=== PATIENT | female | born 1960 | race Caucasian/White ===

== ENCOUNTER 2017-11-25 07:52 | Emergency (ER) | payer SELFPAY ==
[~2017-11-25] VITALS: Ht 165.1 cm; Wt 86.0 kg
[2017-11-25] VITALS (7 sets, daily range): BP systolic 112–150; BP diastolic 64–84; PULSE 74–91; RESP 16–20; TEMP 98.1; O2SAT 95–99
[2017-11-25] MEDS ORDERED: LISI10TA3 PO (08:15)
[2017-11-25] MEDS ORDERED: HYDR50TA94 PO (08:15)
[2017-11-25] MEDS ORDERED: GABA300C5 PO (08:15)
[2017-11-25] MEDS ORDERED: DILA100C PO (08:15)
[2017-11-25] MEDS ORDERED: PRAZ2CAP PO (08:15)
[2017-11-25] MEDS ORDERED: BUSP30TA PO (08:15)
[2017-11-25] MEDS ORDERED: HYDR25TA5 PO (08:15)
[2017-11-25] MEDS ORDERED: PROZ20CA11 PO (08:15)
[2017-11-25] MEDS ORDERED: SODIUM CHLOR 0.9% 1000 ML INJ 1,000 ML IV SCH (08:33)
[2017-11-25] MEDS ORDERED: FAMOTIDINE 20 MG/2 ML VIAL IV PUSH ONE (08:45)
[2017-11-25] MEDS ORDERED: ONDANSETRON HCL 4 MG/2 ML VIAL IV PUSH ONE (08:45)
[2017-11-25] MEDS ORDERED: LORazepam 2 MG/ML VIAL ONE (09:01)
[2017-11-25] MEDS: SODIUM CHLORIDE 0.9% FLUSH 10 ML FLUSH IV FLUSH PRN ×3 (09:06→11:54)
[2017-11-25 09:09] LABS: AUTOMATED NEUTROPHIL # 4.7 TH/MM3 (1.8-7.7); BASOPHIL % 0.3 % (0.0-2.0); EOSINOPHIL % 0.5 % (0.0-4.0); HEMATOCRIT 33.1 % (35.0-46.0); HEMOGLOBIN 11.7 GM/DL (11.6-15.3); LYMPH % 14.8 % (9.0-44.0); LYMPHOCYTE # 0.9 TH/MM3 (1.0-4.8); MEAN CELL VOLUME 85.1 FL (80.0-100.0); MEAN CORPUSCULAR HEMOGLOBIN 30.1 PG (27.0-34.0); MEAN CORPUSCULAR HGB CONC 35.3 % (32.0-36.0); MEAN PLATELET VOLUME 7.6 FL (7.0-11.0); MONO % 4.9 % (0.0-8.0); MONOCYTE # 0.3 TH/MM3 (0-0.9); NEUT % 79.5 % (16.0-70.0); PLATELET COUNT 246 TH/MM3 (150-450); RED BLOOD COUNT 3.89 MIL/MM3 (4.00-5.30); RED CELL DISTRIBUTION WIDTH 11.7 % (11.6-17.2); WHITE BLOOD COUNT 5.9 TH/MM3 (4.0-11.0)
[2017-11-25] MEDS ORDERED: LORazepam 2 MG/ML VIAL IV PUSH ONE (09:15)
[2017-11-25 09:18] LABS: PROTHROMBIN TIME - PATIENT 10.5 SEC (9.8-11.6)
[2017-11-25 10:18] LABS: ALBUMIN 3.7 GM/DL (3.4-5.0); ALKALINE PHOSPHATASE 262 U/L (45-117); ALT (GPT) 55 U/L (10-53); AST (GOT) 36 U/L (15-37); BICARBONATE 23.5 MEQ/L (21.0-32.0); BLOOD UREA NITROGEN 7 MG/DL (7-18); CHLORIDE 90 MEQ/L (98-107); CREATININE 0.79 MG/DL (0.50-1.00); GLOMERULAR FILTRATION RATE 75 ML/MIN (>89); GLUCOSE,RANDOM 109 MG/DL (74-106); PHENYTOIN (DILANTIN) 3.6 MCG/ML (10.0-20.0); TOTAL BILIRUBIN ADULT 0.4 MG/DL (0.2-1.0); TOTAL PROTEIN 7.4 GM/DL (6.4-8.2)
[2017-11-25 10:19] LABS: SODIUM (NA) 124 MEQ/L (136-145)
[2017-11-25] MEDS ORDERED: PHENYTOIN INJ 1,000 MG in SODIUM CHLORIDE 0.9% INJ 100 ML IV ONE (10:45)
[2017-11-25] MEDS ORDERED: MIDAZOLAM HCL 2 MG/2 ML VIAL IV PUSH ONE (10:45)
[2017-11-25] MEDS ORDERED: CYCLOBENZAPRINE HCL 10 MG TAB PO ONE (11:30)
[2017-11-25] MEDS ORDERED: KETOROLAC TROMETHAMINE 30 MG/ML (IVP) VIAL IV PUSH ONE (11:30)
[2017-11-25] MEDS ORDERED: PROCHLORPERAZINE INJ 10 MG/2 ML VIAL IV PUSH ONE (12:15)
[2017-11-25] MEDS ORDERED: diphenhydrAMINE HCL 50 MG/ML VIAL IV PUSH ONE (12:15)
[2017-11-25 13:14] LABS: BILIRUBIN, URINE NEG (NEG); BLOOD, URINE SMALL (NEG); GLUCOSE,URINE NEG (NEG); KETONE, URINE NEG (NEG); NITRITE,URINE NEG (NEG); PH, URINE 5.5 (5.0-8.5); URINE COLOR YELLOW (YELLW/STRAW); URINE LEUKOCYTE ESTERASE NEG (NEG)
[2017-11-25 13:21] LABS: SQUAMOUS EPITHELIAL CELL URINE 0-5 /hpf (0-5); WBC, URINE 0-2 /hpf (0-5)
--- NOTE | 2017-11-25 13:40 | PD ---
HPI Chief Complaint: GI Complaint Time Seen by Provider: 08:06 Travel History International Travel<30 days: No Contact w/Intl Traveler<30days: No Traveled to known affect area: No History of Present Illness HPI Patient is a 57-year-old female who comes in complaining of nausea, vomiting, diarrhea. She has a history of seizure disorder, for which she takes Dilantin. She also reports taking BuSpar for psychiatric issues. She denies any abdominal pain. She says this is been going on for the past 3 days. She denies fever or chills. She denies any blood in her stool or her vomit. She says that she has not taken anything for her symptoms. She is unable to keep anything down, and has vomited up her seizure medications. Severity is mild to moderate. PFSH Past Medical History Arthritis: Yes Anxiety: Yes Depression: Yes Hypertension: Yes Seizures: Yes ?: Not Menopausal: Yes Past Surgical History Surgical History: No Previous Surgery Section: Yes Social History Alcohol Use: No Tobacco Use: No Substance Use: Yes ([place]) Allergies-Medications (Allergen,Severity, Reaction): Coded Allergies: acetaminophen (Verified Allergy, Unknown, 11/25/17) propoxyphene (Verified Allergy, Unknown, 11/25/17) Reported Meds & Prescriptions Reported Meds & Active Scripts Active Zofran Odt (Ondansetron Odt) 4 Mg Tab 4 Mg SL Q6HR PRN Reported Prozac (Fluoxetine HCl) 20 Mg Cap 60 Mg PO DAILY@1600 Hydroxyzine HCl 50 Mg Tab 200 Mg PO DAILY@1600 Buspirone (Buspirone HCl) 30 Mg Tab 60 Mg PO DAILY@1600 Prazosin (Prazosin HCl) 2 Mg Cap 4 Mg PO DAILY@1600 Gabapentin 300 Mg Cap 300 Mg PO TID Dilantin (Phenytoin Extended) 100 Mg Cap 300 Mg PO DAILY Hydrochlorothiazide 25 Mg Tab 25 Mg PO DAILY Lisinopril 10 Mg Tab 10 Mg PO DAILY Review of Systems Except as stated in HPI: all other systems reviewed are Neg General / Constitutional: No: Fever, Chills HENT: No: Headaches, Lightheadedness Cardiovascular: No: Chest Pain or Discomfort Respiratory: No: Shortness of Breath Gastrointestinal: Positive: Nausea, Vomiting, Diarrhea, No: Abdominal Pain Genitourinary: No: Dysuria Skin: No Rash, No Change in Pigmentation Neurologic: No: Weakness, Dizziness Physical Exam Narrative GENERAL: Awake and alert, in no acute distress. SKIN: Focused skin assessment warm/dry. No wounds or signs of infection. HEAD: Atraumatic. Normocephalic. EYES: Pupils equal and round. No scleral icterus. ENT: No nasal bleeding or discharge. Mucous membranes pink and moist. NECK: Trachea midline. No JVD. CARDIOVASCULAR: Regular rate and rhythm. No murmur appreciated. RESPIRATORY: No accessory muscle use. Clear to auscultation. Breath sounds equal bilaterally. GASTROINTESTINAL: Abdomen soft, non-tender, nondistended. MUSCULOSKELETAL: No obvious deformities. No clubbing. No cyanosis. No edema. NEUROLOGICAL: Awake and alert. No obvious cranial nerve deficits. Motor grossly within normal limits. Normal speech. PSYCHIATRIC: Appropriate mood and affect; insight and judgment normal. Data Data Last Documented VS Vital Signs Date Time Temp Pulse Resp B/P (MAP) Pulse Ox O2 Delivery O2 Flow Rate FiO2 11/25/17 12:31 83 20 131/84 (100) 99 Nasal Cannula 2.00 11/25/17 07:56 98.1 Orders Orders Complete Blood Count With Diff (11/25/17 08:33) Comprehensive Metabolic Panel (11/25/17 08:33) Lipase (11/25/17 08:33) Prothrombin Time / Inr (Pt) (11/25/17 08:33) Act Partial Throm Time (Ptt) (11/25/17 08:33) Urinalysis - C+S If Indicated (11/25/17 08:33) Iv Access Insert/Monitor (11/25/17 08:33) Ecg Monitoring (11/25/17 08:33) Oximetry (11/25/17 08:33) Sodium Chlor 0.9% 1000 Ml Inj (Ns 1000 M (11/25/17 08:33) Sodium Chloride 0.9% Flush (Ns Flush) (11/25/17 08:45) Famotidine Inj (Pepcid Inj) (11/25/17 08:45) Ondansetron Inj (Zofran Inj) (11/25/17 08:45) Lorazepam Inj (Ativan Inj) (11/25/17 09:01) Lorazepam Inj (Ativan Inj) (11/25/17 09:15) Phenytoin (Dilantin) (11/25/17 08:54) Phenytoin Inj (Dilantin Inj) (11/25/17 10:45) Midazolam Inj (Versed Inj) (11/25/17 10:45) Ketorolac Inj (Toradol Inj) (11/25/17 11:30) Cyclobenzaprine (Flexeril) (11/25/17 11:30) Prochlorperazine Inj (Compazine Inj) (11/25/17 12:15) Diphenhydramine Inj (Benadryl Inj) (11/25/17 12:15) Ed Discharge Order (11/25/17 13:49) Labs Laboratory Tests Test 11/25/17 08:54 11/25/17 13:05 White Blood Count 5.9 TH/MM3 Red Blood Count 3.89 MIL/MM3 Hemoglobin 11.7 GM/DL Hematocrit 33.1 % Mean Corpuscular Volume 85.1 FL Mean Corpuscular Hemoglobin 30.1 PG Mean Corpuscular Hemoglobin Concent 35.3 % Red Cell Distribution Width 11.7 % Platelet Count 246 TH/MM3 Mean Platelet Volume 7.6 FL Neutrophils (%) (Auto) 79.5 % Lymphocytes (%) (Auto) 14.8 % Monocytes (%) (Auto) 4.9 % Eosinophils (%) (Auto) 0.5 % Basophils (%) (Auto) 0.3 % Neutrophils # (Auto) 4.7 TH/MM3 Lymphocytes # (Auto) 0.9 TH/MM3 Monocytes # (Auto) 0.3 TH/MM3 Eosinophils # (Auto) 0.0 TH/MM3 Basophils # (Auto) 0.0 TH/MM3 CBC Comment DIFF FINAL Differential Comment Prothrombin Time 10.5 SEC Prothromb Time International Ratio 1.0 RATIO Activated Partial Thromboplast Time 28.3 SEC Blood Urea Nitrogen 7 MG/DL Creatinine 0.79 MG/DL Random Glucose 109 MG/DL Total Protein 7.4 GM/DL Albumin 3.7 GM/DL Calcium Level 9.0 MG/DL Alkaline Phosphatase 262 U/L Aspartate Amino Transf (AST/SGOT) 36 U/L Alanine Aminotransferase (ALT/SGPT) 55 U/L Total Bilirubin 0.4 MG/DL Sodium Level 124 MEQ/L Potassium Level 3.2 MEQ/L Chloride Level 90 MEQ/L Carbon Dioxide Level 23.5 MEQ/L Anion Gap 11 MEQ/L Estimat Glomerular Filtration Rate 75 ML/MIN Lipase 208 U/L Phenytoin (Dilantin) Level 3.6 MCG/ML Urine Collection Type CLEAN CATCH Urine Color YELLOW Urine Turbidity CLEAR Urine pH 5.5 Urine Specific Laie LESS/EQUAL 1.005 Urine Protein NEG mg/dL Urine Glucose (UA) NEG mg/dL Urine Ketones NEG mg/dL Urine Occult Blood SMALL Urine Nitrite NEG Urine Bilirubin NEG Urine Urobilinogen 0.2 MG/DL Urine Leukocyte Esterase NEG Urine RBC 4-9 /hpf Urine WBC 0-2 /hpf Urine Squamous Epithelial Cells 0-5 /hpf Microscopic Urinalysis Comment CULT NOT INDICATED Urine Collection Time 13:05 [facility] Medical Decision Making Medical Screen Exam Complete: Yes Emergency Medical Condition: Yes Differential Diagnosis Gastroenteritis versus electrolyte abnormality versus dehydration versus UTI Narrative Course Patient is a 57-year-old female who comes in complaining of nausea, vomiting, diarrhea. Exam shows no abdominal tenderness on palpation. IV established, labs sent. Labs show a sodium of 124. She was given some IV fluids. She was given Zofran. While in the emergency department, patient was observed to have a tonic-clonic seizure. She was given 2 mg of Ativan. After the seizure, patient complained of muscle spasms. Attempts to get a CAT scan of her abdomen and pelvis due to the duration of her symptoms was made, however she was unable to sit still. She was given 1 mg of Versed. She was then given Compazine and Benadryl. She is also given Toradol and Flexeril to try and help with her reports of muscle spasms. Patient was observed in the emergency department for several hours. Attempts made to obtain a CAT scan, however patient refused to lay still. She is able to tolerate drinking without vomiting. She was loaded with Dilantin as her Dilantin level was only 3.6. Abdomen remains soft and nontender. I believe we can hold off on CAT scan at this point. Patient reports having her Dilantin at home. She is given a prescription for Zofran. Advised to make sure she takes her Dilantin as directed. Advised to drink plenty of fluids and eat a bland diet. Advised follow-up with a primary care doctor. Advised to return to the ED as needed for any worsening symptoms. Diagnosis Primary Impression: Nausea & vomiting Qualified Codes: R11.2 - Nausea with vomiting, unspecified Referrals: [facility] Patient Instructions: Acute Nausea and Vomiting (ED), Epilepsy (ED), General Instructions Additional Instructions: Make sure to take your seizure medication. Drink plenty of fluids. Eat a bland diet. Take Zofran as needed for nausea. Follow up with your doctor. Return to the ED as needed for any worsening symptoms. Scripts Ondansetron Odt (Zofran Odt) 4 Mg Tab 4 MG SL Q6HR Y for Nausea/Vomiting, #12 TAB 0 Refills Prov: Taylor Wakefield MD 11/25/17 Disposition: DISCHARGE HOME Condition: Stable Taylor Wakefield MD November 25, 2017 13:40
[2017-11-25] MEDS ORDERED: ZOFR4TAB3 SL (13:49)
== END 2017-11-25 14:34 | disposition home or self-care (01) ==
LOC: PHED 07:52
DX: R11.2 Nausea with vomiting, unspecified (principal); R56.9 Unspecified convulsions; R19.7 Diarrhea, unspecified; I10 Essential (primary) hypertension; M62.838 Other muscle spasm; Z79.899 Other long term (current) drug therapy
CPT/HCPCS: 80053; 80185; 81001; 83690; 85025; 85610; 85730; 96361; 96365; 96375; 99284; J0780; J1165; J1200; J1885; J2250; J2405; J7030; J2060